=== PATIENT | female | born 1965 | race African-American/Black ===

== ENCOUNTER 2018-01-15 18:09 | Emergency (ER) | payer BC ==
[2018-01-15 18:21] VITALS: BP 122/66; PULSE 78; TEMP 98.5; BMI 32.3
--- NOTE | 2018-01-15 20:16 | PDOC ---
History of Present Illness - General Chief Complaint: Pain Stated Complaint: KNEE PAIN Time Seen by Provider: 01/15/18 19:51 History Source: Patient Exam Limitations: Clinical Condition - History of Present Illness Initial Comments: 01/15/18 20:11 Morbidly obese patient presented with complain of left knee pain which has been persistent for 3 days and localized to the back of knee and side of knee which is worse with ambulation. Patient denies trauma or injury to knee. Patient denies previous knee surgery. She denies any other symptoms Timing/Duration: other (3) Past History - Past Medical History Allergies/Adverse Reactions: Allergies Allergy/AdvReac Type Severity Reaction Status Date / Time No Known Drug Allergies Allergy Verified 01/15/18 18:21 Home Medications: Ambulatory Orders Aspirin 81 mg PO DAILY #30 03/29/13 Multivitamin/Iron/Folic Acid [Centrum Complete Multivit Tab] 1 each PO DAILY # 30 03/29/13 Cholecalciferol (Vitamin D3) [Vitamin D3 -] 1,000 unit PO DAILY 04/10/14 Guar Gum [Benefiber] 1 each PO ASDIR #0 packet 04/11/14 No Nsaids 04/11/14 Leg Brace [Knee Brace] 1 each MC DAILY #1 each 01/15/18 Naproxen 500 mg PO BID PRN #20 tablet 01/15/18 Anemia: No Asthma: No Cancer: No Cardiac Disorders: No CVA: No COPD: No CHF: No Dementia: No Diabetes: No GI Disorders: No Disorders: Yes (RENAL COLIC) HTN: Yes Hypercholesterolemia: No Liver Disease: No Seizures: No Thyroid Disease: No - Surgical History Abdominal Surgery: No Appendectomy: No Cardiac Surgery: No Cholecystectomy: No Lung Surgery: No Neurologic Surgery: No Orthopedic Surgery: No - Suicide/Smoking/Psychosocial Hx Smoking History: Never smoked Have you smoked in the past 12 months: No Hx Alcohol Use: No Drug/Substance Use Hx: No Substance Use Type: None Hx Substance Use Treatment: No Review of Systems - Review of Systems Able to Perform ROS?: Yes Is the patient limited German proficient: No Constitutional: No: Weakness Respiratory: No: Symptoms reported Cardiac (ROS): No: Symptoms Reported ABD/GI: No: Symptoms Reported Musculoskeletal: Yes: See HPI, Joint Pain (left knee), Muscle Pain (side and back of left knee). No: Muscle Weakness, Joint Stiffness All Other Systems: Reviewed and Negative *Physical Exam - Vital Signs Last Vital Signs Temp Pulse Resp BP Pulse Ox 98.5 F 78 18 122/66 98 01/15/18 18:19 01/15/18 18:19 01/15/18 18:19 01/15/18 18:19 01/15/18 18:19 - Physical Exam Comments: 01/15/18 20:12 GENERAL: Well developed, well nourished. Awake and alert. No acute distress. CARDIOVASCULAR: Regular rate and rhythm. No murmurs, rubs, or gallops. PULMONARY: No evidence of respiratory distress. Lungs clear to auscultation bilaterally. No wheezing, rales or rhonchi. ABDOMINAL: Soft. Non-tender. Non-distended. No rebound or guarding. No organomegaly. Normoactive bowel sounds MUSCULOSKELETAL : Mild tenderness to patellar and bilateral collateral ligament of left knee. No joint effusion or swelling to left knee. Negative anterior- posterior drawer tests of left knee. No bony deformities EXTREMITIES: No cyanosis. No clubbing. No edema. No calf tenderness. SKIN: Warm and dry. Normal capillary refill. No rashes. No jaundice. NEUROLOGICAL: Alert, awake, appropriate. No motor deficits in the lower extremities. Gait is normal without ataxia. PSYCHIATRIC: Cooperative. Good eye contact. Appropriate mood and affect. General Appearance: Yes: Nourished, Appropriately Dressed. No: Apparent Distress Medical Decision Making - Medical Decision Making 01/15/18 20:13 Patient with no sig past medical history presenting with complain of persistent left knee pain without trauma or injury. Exam significant for mild tenderness to medial lateral collateral ligament of left knee and patella of left knee without any effusion. X-ray of left knee shows no acute pathology. Symptoms likely knee strain given patient overweight. Patient stable for home discharge on knee brace and NSAIDs with orthopedics follow-up as needed. *DC/Admit/Observation/Transfer Diagnosis at time of Disposition: Strain of left knee Qualifiers: Encounter type: initial encounter Qualified Code(s): S86.912A - Strain of unspecified muscle(s) and tendon(s) at lower leg level, left leg, initial encounter - Discharge Dispostion Disposition: HOME Condition at time of disposition: Stable Decision to Admit order: No - Prescriptions Prescriptions: Leg Brace [Knee Brace] 1 each DAILY #1 each Naproxen 500 mg PO BID PRN #20 tablet PRN Reason: knee pain - Referrals Referrals: Miguel Martinez MD [Primary Care Provider] - Yang Fox MD [Staff Physician] - - Patient Instructions Printed Discharge Instructions: Knee Sprain, How to Use an Elastic Bandage- Knee Sprain Additional Instructions: Your x-ray was negative for fracture or dislocation. Take medication as prescribed as needed for pain. Wear prescribed knee brace daily until symptoms resolve. Follow up with preferred orthopedics if symptoms does not improve in 5 days. - Post Discharge Activity
== END 2018-01-15 20:23 | disposition home or self-care (01) ==
LOC: JERFT 18:09
DX: S86.812A Strain of other muscle(s) and tendon(s) at lower leg level, left leg, initial encounter (principal); X58.XXXA Exposure to other specified factors, initial encounter; Y93.89 Activity, other specified; Y92.89 Other specified places as the place of occurrence of the external cause; Y99.8 Other external cause status
CPT/HCPCS: 73562-TC-LT-FY; 99281-25

== ENCOUNTER → 2024-01-05 | Day surgery (SDC) | payer BC | END | disposition home or self-care (01) | LOC: FMAMMOTONE 12:22 → EDSTATUS 13:00 | PROVIDERS: ATTEND Family Medicine | PROC: 0HBU3ZX Excision of Left Breast, Percutaneous Approach, Diagnostic (ICD-10-PCS; principal; 2024-01-05) | DX: N64.89 Other specified disorders of breast (principal); R92.1 Mammographic calcification found on diagnostic imaging of breast | CPT/HCPCS: 19081; 76098-TC-FY; 88305-TC ==